=== PATIENT | female | born 1955 | race Caucasian/White ===

== ENCOUNTER 2016-10-25 09:53 | Emergency (ER) | payer MEDICAID, MEDICARE ==
--- NOTE | 2016-10-25 10:38 | ED Physician Chart ---
Chief Complaint/HPI - Patient Information Date Seen:: 10/25/16 Time Seen:: 10:15 Chief Complaint:: altered mental status History of Present Illness:: Patient was brought in by the police. She stated she was trying to walk to the country of [place]. 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 Patient was discharged from [facility] 2 days ago. She states she does not know how long she was in [facility] and that she was there for congestive heart failure. Historian:: Patient Review:: Nurse's Note Reviewed <Chidi Magdaleno - Last Filed: 10/25/16 14:42> - Patient Information Allergies:: Allergies Allergy/AdvReac Type Severity Reaction Status Date / Time fluphenazine [From Prolixin] Allergy Verified 10/25/16 10:38 Vitals:: Vital Signs - 8 hr 10/26/16 08:05 Temp 97.1 F HR 64 RR 16 BP 125/70 O2 Sat % 99 <Lorne Mckeon - Last Filed: 10/26/16 09:56> Review of Systems - Review of Systems General/Constitutional: No fever, No chills Skin: No skin lesions Head: No headache Eyes: No loss of vision ENT: No earache Neck: No neck pain, No swelling Cardio Vascular: No chest pain, No palpitations Pulmonary: No SOB GI: No nausea, No vomiting, No diarrhea G/U: No dysuria, No hematuria Musculoskeletal: No bone or joint pain, No muscle pain Endocrine: No polyuria, No polydipsia Psychiatric: Prior psych history Hematopoietic: No bruising, No lymphadenopathy Allergic/Immuno: No urticaria Neurological: No syncope, No focal symptoms, No headache <Chidi Magdaleno - Last Filed: 10/25/16 14:42> Past Medical History - Past Medical History Past Medical History: Other (bipolar) Family History: Heart disease, Other (congestive heart failure) Social History: Smoker, Alcohol, Other (states she drinks about three quarters of a bottle of vodka once a week) Surgical History: other (right femur) Psychiatricy History: Bipolar Medication: None <Chidi Magdaleno - Last Filed: 10/25/16 14:42> Family Medical History - Family Member Father Ethnicity: Living Status: Hx Family Hypertension: Yes <Chidi Magdaleno - Last Filed: 10/25/16 14:42> Physical Exam - Physical Examination General/Constitutional: No distress Other Gen/Cons comments:: Disheveled; alert and oriented to the exact date Head: Atraumatic Eyes: Lids, conjuctiva normal, PERRL Skin: Nl inspection, No rash ENMT: External ears, nose nl, TM canals nl, Nasal exam nl Other ENMT comments:: Upper teeth absent; 4 out of 4 periodontal disease lower gums Neck: No nuchal rigidity Respiratory: Nl effort/Exclusion, Clear to Auscultation, No Wheeze/Rhonchi/Rales Cardio Vascular: RRR, No murmur, gallop, rubs GI: No tenderness/rebounding/guarding, No organomegaly, No hernia, Normal BS's, Nondistended, No McBurney tenderness : No CVA tenderness Extremities: Normal digits & nails Neuro/Psych: No focal deficits Misc: Normal back <Chidi Magdaleno - Last Filed: 10/25/16 14:42> Labs/Radiology/EKG Results - Lab Results Comments:: Laboratory Results - last 24 hr 10/25/16 10/25/16 10/25/16 10:50 10:50 10:50 WBC 6.0 RBC 4.12 Hgb 13.2 Hct 38.7 MCV 94.0 MCH 32.0 H MCHC Differential 34.1 RDW 12.7 Plt Count 217 MPV 7.4 Neutrophils % 66.9 Lymphocytes % 20.4 Monocytes % 10.0 Eosinophils % 1.7 Basophils % 1.0 Troponin I < 0.01 L B-Natriuretic Peptide 46.0 - Radiology Results Comments:: Chest x-ray as read by the radiologist: Faint right mid and right upper lung opacity. Radiologist recommended a CT of the chest which showed ill-defined densities in both upper lobes. - EKG Interpretations Rate & Rhythm: normal sinus rhythm with a rate of 57; no ST-T changes; normal axis <Chidi Magdaleno - Last Filed: 10/25/16 14:42> - Lab Results Results: Laboratory Tests 10/25/16 10/25/16 10/25/16 10:45 10:50 10:50 WBC 6.0 RBC 4.12 Hgb 13.2 Hct 38.7 MCV 94.0 MCH 32.0 H MCHC Differential 34.1 RDW 12.7 Plt Count 217 MPV 7.4 Neutrophils % 66.9 Lymphocytes % 20.4 Monocytes % 10.0 Eosinophils % 1.7 Basophils % 1.0 Sodium 134 L Potassium 3.3 L Chloride 101 Carbon Dioxide 26.5 Anion Gap 9.8 BUN 10 Creatinine 0.7 Est GFR ( Amer) > 60.0 Est GFR (Non-Af Amer) > 60.0 BUN/Creatinine Ratio 14.3 Glucose 100 Calcium 9.9 Total Bilirubin 0.8 AST 31 ALT 15 Alkaline Phosphatase 55 Troponin I B-Natriuretic Peptide Total Protein 7.1 Albumin 4.0 Globulin 3.1 Albumin/Globulin Ratio 1.3 Triglycerides 57 Cholesterol 147 LDL Cholesterol Direct 77 HDL Cholesterol 58 TSH Urine Source CLEAN C Urine Color YELLOW Urine Clarity CLEAR Urine pH 6.0 Ur Specific [place] <= 1.005 Urine Protein NEGATIVE Urine Glucose (UA) NEGATIVE Urine Ketones NEGATIVE Urine Blood MODERATE H Urine Nitrate POSITIVE H Urine Bilirubin NEGATIVE Urine Urobilinogen 0.2 Ur Leukocyte Esterase NEGATIVE Urine RBC 5-10 H Urine WBC 0-2 Ur Epithelial Cells OCCASIONAL Urine Bacteria FEW RPR 10/25/16 10/25/16 10/25/16 10:50 10:50 10:50 WBC RBC Hgb Hct MCV MCH MCHC Differential RDW Plt Count MPV Neutrophils % Lymphocytes % Monocytes % Eosinophils % Basophils % Sodium Potassium Chloride Carbon Dioxide Anion Gap BUN Creatinine Est GFR ( Amer) Est GFR (Non-Af Amer) BUN/Creatinine Ratio Glucose Calcium Total Bilirubin AST ALT Alkaline Phosphatase Troponin I B-Natriuretic Peptide 46.0 Total Protein Albumin Globulin Albumin/Globulin Ratio Triglycerides Cholesterol LDL Cholesterol Direct HDL Cholesterol TSH 2.41 Urine Source Urine Color Urine Clarity Urine pH Ur Specific [place] Urine Protein Urine Glucose (UA) Urine Ketones Urine Blood Urine Nitrate Urine Bilirubin Urine Urobilinogen Ur Leukocyte Esterase Urine RBC Urine WBC Ur Epithelial Cells Urine Bacteria RPR NONREACTIVE 10/25/16 10:50 WBC RBC Hgb Hct MCV MCH MCHC Differential RDW Plt Count MPV Neutrophils % Lymphocytes % Monocytes % Eosinophils % Basophils % Sodium Potassium Chloride Carbon Dioxide Anion Gap BUN Creatinine Est GFR ( Amer) Est GFR (Non-Af Amer) BUN/Creatinine Ratio Glucose Calcium Total Bilirubin AST ALT Alkaline Phosphatase Troponin I < 0.01 L B-Natriuretic Peptide Total Protein Albumin Globulin Albumin/Globulin Ratio Triglycerides Cholesterol LDL Cholesterol Direct HDL Cholesterol TSH Urine Source Urine Color Urine Clarity Urine pH Ur Specific [facility] Urine Protein Urine Glucose (UA) Urine Ketones Urine Blood Urine Nitrate Urine Bilirubin Urine Urobilinogen Ur Leukocyte Esterase Urine RBC Urine WBC Ur Epithelial Cells Urine Bacteria RPR <Lorne Mckeon - Last Filed: 10/26/16 09:56> Assessment - Assessment General Assessment: Patient later mentioned that she was told at another hospital that she has lung cancer. She does not at this time have any difficulty breathing <Chidi Magdaleno - Last Filed: 10/25/16 14:42> ED Septic Shock - . Is Septic Shock (SBP<90, OR Lactate>4 mmol\L) present?: No - <6hrs of presentation: Vital Signs: Vital Signs - 8 hr 10/26/16 08:05 Temp 97.1 F HR 64 RR 16 BP 125/70 O2 Sat % 99 <Lorne Mckeon - Last Filed: 10/26/16 09:56> Reassessment (Disposition) - Reassessment Reassessment:: the patient was seen by [facility]. [id number] HRS Reassessment Condition:: Improved - Diagnosis Diagnosis:: SUICIDAL IDEATION - Aftercare/Follow up Instructions Aftercare/Follow-Up Instructions:: Counseled pt regarding lab results/diagnosis & need follow up, Refer to Discharge Instructions, Counseled pt & family regarding lab results/diagnosis & need follow up - Patient Disposition Discharge/Transfer:: Home Condition at Disposition:: Stable, Improved <Lorne Mckeon - Last Filed: 10/26/16 09:56> ED Discharge Plan <Chidi Magdaleno - Last Filed: 10/25/16 14:42> <Lorne Mckeon - Last Filed: 10/26/16 09:56> - Patient Disposition Admit/Discharge/Transfer: PT DISCHARGED HOME Condition at Disposition: Improved
[2016-10-25 11:15] LABS: % EOSINOPHILS 1.7 % (0.0-5.0); % LYMPHOCYTES 20.4 % (20.0-50.0); % NEUTROPHILS 66.9 % (40.0-80.0); HEMATOCRIT 38.7 % (35.0-45.0); HEMOGLOBIN 13.2 gm/dL (11.7-15.5); MEAN CORPUSCULAR HGB CONC 34.1 pg (28.0-36.0); MEAN PLATELET VOLUME 7.4 fl; PLATELET COUNT 217 Th/cmm (150-400); RED BLOOD COUNT 4.12 Mil/cmm (3.80-5.10); RED CELL DISTRIBUTION WIDTH 12.7 % (11.5-20.0)
--- NOTE | 2016-10-25 11:57 | Diagnostic Imaging Report ---
CHEST X-RAY: AP view INDICATION: CVA COMPARISON: None FINDINGS: Chronic changes are seen with no focal consolidation or pleural effusions. There is a faint subcentimeter right mid to upper lung opacity projecting along the right sixth rib posteriorly. Heart size is normal. Atherosclerosis is noted. Degenerative changes of spine are noted. IMPRESSION: No focal consolidation identified. Faint subcentimeter right mid to upper lung opacity. Faint infiltrate or nodule cannot be excluded. As no prior exams are available for comparison, follow-up short-term CT chest would provide for additional detail and assessment Atherosclerotic vascular disease. Dr. Magdaleno was informed of the findings on 10/25/2016 at 11:54 AM.
[2016-10-25 12:00] LABS: ALB/GLOB RATIO 1.3 (1.0-1.8); ALKALINE PHOSPHATASE 55 U/L (34-104); ANION GAP 9.8 (7.0-16.0); BILIRUBIN,TOTAL 0.8 mg/dL (0.3-1.0); BUN - UREA NITROGEN 10 mg/dL (7-25); BUN/CREATININE RATIO 14.3; CALCIUM SERUM 9.9 mg/dL (8.6-10.3); CARBON DIOXIDE 26.5 mEq/L (21.0-31.0); CHLORIDE 101 mEq/L (98-107); CHOLESTEROL 147 mg/dL (<200); CREATININE - SERUM 0.7 mg/dL (0.6-1.2); GLUCOSE 100 mg/dL (70-105); POTASSIUM SERUM 3.3 mEq/L (3.5-5.1); SGOT 31 U/L (13-39); SGPT/ALT 15 U/L (7-52); SODIUM SERUM 134 mEq/L (136-145); TRIGLYCERIDES 57 mg/dL (<150)
[2016-10-25] MEDS ORDERED: Potassium Chloride 20 mEq ER Tab PO ONE ×2 (12:19→13:02)
[2016-10-25] MEDS ORDERED: IOHEXOL 300MG/ML 100 ML VIAL IVP ONE (12:20)
--- NOTE | 2016-10-25 13:38 | Diagnostic Imaging Report ---
CT scan of the chest with intravenous contrast HISTORY: Mass. Total DLP equals 211 CTDI equals 5.1 Following administration of intravenous contrast, axial sections were obtained from a level above the clavicles down to level below the diaphragm. There is a normal heart size. Mild atherosclerotic calcification seen in the aorta. No abnormal mediastinal masses are seen. The hilar regions appear normal. There is an approximate 2.0 cm irregular ill-defined parenchymal density within the left upper lobe. An additional ill-defined region of parenchymal density is noted in the periphery of the right upper lobe. However, a discrete mass is not outlined in the area. No pleural fluid is seen. IMPRESSION: 1. Approximate 2.0 cm irregular ill-defined parenchymal density within the left upper lobe. Etiology is indeterminate. Findings may be associated with an inflammatory or neoplastic etiology. Clinical correlation is needed. 2. Additional ill-defined focus of parenchymal density seen in the right upper lobe. No discrete margins are delineated. Again, exact etiology uncertain. Inflammatory change cannot be ruled out. Clinical correlation is needed.
[2016-10-25 16:01] LABS: URINE BILIRUBIN NEGATIVE (NEGATIVE); URINE BLOOD MODERATE (NEGATIVE); URINE GLUCOSE (UA) NEGATIVE (NEGATIVE); URINE KETONE NEGATIVE (NEGATIVE); URINE PROTEIN NEGATIVE (NEGATIVE); URINE UROBILINOGEN 0.2 E.U./dL (0.2 - 1.0)
[2016-10-25 16:07] LABS: URINE COLOR YELLOW
[2016-10-25 16:08] LABS: URINE BACTERIA FEW /hpf (NONE SEEN); URINE EPITHELIAL CELLS OCCASIONAL /lpf (FEW); URINE WBC 0-2 /hpf (0-5)
--- NOTE | 2016-10-26 10:09 | History & Physical ---
ADMIT DATE: 10/26/2016 IDENTIFYING DATA: The patient is a 61-year-old woman, currently homeless. Information obtained by directly interviewing the patient as well as reviewing the admission papers. JUSTIFICATION FOR HOSPITALIZATION: The patient is admitted on a 5150 for being gravely disabled. CHIEF COMPLAINT: "I need to walk." HISTORY OF PRESENT ILLNESS: This patient is a 61-year-old reported to be homeless and patient has been evaluated by the med team and has been placed on 5150 and admitted over here for stabilization. During the evaluation, the patient has been mentioning that she has a place and she needs to walk over there and she cannot be locked up in the hospital. The patient is not able to clearly articulate where she is going to be leaving, but the patient states that she has a place and she has been insisting on leaving. The patient is not presenting with any threats to harm self or others. PAST PSYCHIATRIC HISTORY: Details are not known. The patient is stating that she is not crazy. She should not be on any medications. SUBSTANCE ABUSE HISTORY: None. PHYSICAL OR SEXUAL ABUSE HISTORY: None. SOCIAL HISTORY: The patient has been endorsing to one time that she was in a ____ diagnosis facility. MENTAL STATUS EXAMINATION: The patient is a 61-year-old thin built, superficially cooperative. Eye contact is poor. Mood is noted to be irritable. Affect is constricted. The patient has not been presenting with any threats to harm self or others. The patient is gravely disabled. The patient is not presenting with any paranoia. No delusions are hallucinations are noted. The patient is stating that she needs to walk. That is all the thing that she has been mentioning. DIAGNOSTIC IMPRESSION: Depressive disorder, not otherwise specified. PLAN: To involve the social service assistant to see if they are going to be able to find a place for this patient. If that happens, the patient can be discharged. [facility]# [id number]
== END 2016-10-26 12:45 ==
LOC: ER 09:53
DX: R45.851 Suicidal ideations (principal); F17.200 Nicotine dependence, unspecified, uncomplicated; F31.9 Bipolar disorder, unspecified; Z88.8 Allergy status to other drugs, medicaments and biological substances
CPT/HCPCS: 36415-UA; 71010-TC; 71260-TC; 80053-TC; 80061-TC; 81001-TC; 83880-TC; 84443-TC; 84484-TC; 85025-TC; 86592-TC; 93005; Q9967